=== PATIENT | female | born 1985 | race Caucasian/White ===

== ENCOUNTER 2020-01-21 11:51 | Inpatient (IN) | payer BC, SELFPAY ==
[2020-01-21] VITALS (87 sets, daily range): BP systolic 77–129; BP diastolic 38–90; PULSE 57–113; RESP 16; TEMP 36.6–37.3; O2SAT 89–100; BMI 27.8
[2020-01-21 12:51] LABS: Basophils Percent Auto 0.3 % (0.2-1.2); Eosinophils Absolute Auto 0.1 K/mm3 (0-0.3); Eosinophils Percent Auto 0.4 % (0-4.4); Hematocrit 33.5 % (37.0-47.0); Immature Granulocyte Absolute 0.15 K/mm3 (0.00-0.031); Immature Granulocyte Percent A 1.1 % (0-0.5); Lymphocytes Absolute Auto 1.33 K/mm3 (0.9-3.2); Lymphocytes Percent Auto 9.9 % (18.3-44.2); Mean Corpuscular HGB Conc 32.8 g/dl (32-36); Mean Corpuscular Hemoglobin 28.7 pg (26-34); Mean Corpuscular Volume 87.5 fl (80-100); Mean Platelet Volume 11.3 fl (7.4-10.4); Monocytes Absolute Auto 0.7 K/mm3 (0.1-0.6); Monocytes Percent Auto 5.4 % (2.6-8.5); Neutrophils Absolute Auto 11.1 K/mm3 (1.3-6.7); Neutrophils Percent Auto 82.9 % (45.5-73.1); Platelet Count Result 180 k/mm3 (150-375); Red Blood Count 3.83 M/mm3 (4.2-5.4); Red Cell Distribution Width 12.7 % (11.5-14.5); White Blood Count 13.4 K/mm3 (4.5-10.0)
[2020-01-21] MEDS: OXYTOCIN 30 UNITS/NS 500 ML 30 UNITS/500 ML BAG IV CONT (13:03)
[2020-01-21] MEDS: LACTATED RINGERS 1,000 ML 125 ML IV CONT ×3 (13:05→17:36)
--- NOTE | 2020-01-21 15:12 | WPDANESEPP ---
Anes - Eval Pre Procedure Procedure: labor pain management Date/Time: 01/21/20 15:12 Preop Diagnosis: pain during labor Pre Op Diagnosis: SROM/Labor Patient Data Age: 34 Gender: F Height: 5 ft 8 in Weight: 83 kg Last Vital Signs Temp 99.2 F 01/21/20 13:03 Pulse 97 01/21/20 14:00 BP 107/68 01/21/20 14:00 Pulse Ox 99 01/21/20 15:07 Allergies Allergy/AdvReac Type Severity Reaction Status Date / Time naproxen Allergy Hives Verified 01/16/20 14:47 Home Medications Medication Instructions Recorded Confirmed Type gjxcckoydw-naiviysmdfvdj-mxat 1 cap PO TID PRN 01/16/20 01/16/20 History famotidine 20 mg PO DAILY 01/16/20 01/16/20 History ondansetron 8 mg PO Q8H PRN 01/16/20 01/16/20 History Laboratory Tests 01/21/20 01/21/20 01/21/20 12:43 12:43 12:43 WBC 13.4 K/mm3 H K/mm3 (4.5-10.0) RBC 3.83 M/mm3 L M/mm3 (4.2-5.4) Hgb 11.0 g/dL L g/dL (12.0-15.0) Hct 33.5 % L % (37.0-47.0) MCV 87.5 fl fl (80-100) MCH 28.7 pg pg (26-34) MCHC 32.8 g/dl g/dl (32-36) RDW 12.7 % % (11.5-14.5) Plt Count 180 k/mm3 k/mm3 (150-375) MPV 11.3 fl H fl (7.4-10.4) Immature Gran % (Auto) 1.1 % H % (0-0.5) Neut % (Auto) 82.9 % H % (45.5-73.1) Lymph % (Auto) 9.9 % L % (18.3-44.2) [place] % (Auto) 5.4 % % (2.6-8.5) Eos % (Auto) 0.4 % % (0-4.4) Baso % (Auto) 0.3 % % (0.2-1.2) Lymph # (Auto) 1.33 K/mm3 K/mm3 (0.9-3.2) [place] # (Auto) 0.7 K/mm3 H K/mm3 (0.1-0.6) Eos # (Auto) 0.1 K/mm3 K/mm3 (0-0.3) Baso # (Auto) 0.0 K/mm3 K/mm3 (0.0-0.1) Abs Immat Gran (auto) 0.15 K/mm3 H K/mm3 (0.00-0.031) Absolute Neuts (auto) 11.1 K/mm3 H K/mm3 (1.3-6.7) Absolute Nucleated RBC 0.0 K/mm3 K/mm3 (0.0-0.012) Nucleated RBC % 0.0 % % (0.0-0.2) RPR Pending Blood Type O Positive Antibody Screen Negative Patient hx anesthesia problems: none Family hx anesthesia problems: none PMFSH Past Medical History Medical History (Updated 01/21/20 @ 15:13 by Anna Lugo CRNA) Migraines Rheumatoid arthritis Surgical History Surgical History (Updated 01/21/20 @ 15:13 by Anna Lugo CRNA) Hx of tonsillectomy Family History Family History (Updated 01/16/20 @ 15:15 by Shoaib Garcia RN) Mother Rheumatoid arthritis Social History Social History Smoking status: Never smoker Second hand tobacco smoke exposure: No Substance use: never Gender identity (if verbalized by the patient): Female Spiritual care concerns: No Exam Day of Procedure 01/21/20 15:12
[2020-01-21] MEDS: PHENYLEPHRINE 1,000 MCG/10 ML SYRINGE 100 MCG IV PUSH ×2 (16:17→16:21)
[2020-01-21] MEDS: ONDANSETRON INJ 4 MG/2 ML VIAL IV PUSH (16:19)
--- NOTE | 2020-01-21 18:01 | WPDHPUPDATE1 ---
History and Physical Update Update Date/Time: 01/21/20 18:01 34 yo at 37w5d who presents after SROM. She reports regular ctx. She denies any vaginal bleeding. She endorses good FM. History and Physical has been reviewed, including an updated exam of the patient. There are NO changes in the patient's condition. Risks, benefits, and alternatives have been discussed and questions answered. Patient agrees to proceed with procedure. A/P: 34 yo at 37w5d who presents after SROM admit to L&D routine admisson orders Rh+ GBS neg FHT cat 1 will start augmentation with pitocin
--- NOTE | 2020-01-21 18:04 | PM.OBPRVD ---
OB - Delivery Note Procedure Procedure: Patient pushed for a spontaneous vaginal delivery. The fetus was delivered atraumatically and placed on the maternal abdomen. The cord was clamped and cut after 1 minute of life. The cord was double clamped and cut and a segment of cord was collected for cord gases. Cord blood was collected for blood type and Coomb's testing. The placenta delivered spontaneously and was noted to be intact. The perineum was inspected and there were no lacerations noted. The uterus was firm and good hemostasis was noted. The patient and fetus were stable in the delivery room. Intrapartal events: None Induction method: none Delivery augmentation: pitocin Delivery monitor: external FHT Route of delivery: Episiotomy description: None Laceration description: None Specimen: No Estimated blood loss (mL): 250 Anesthesia type: Epidural Disposition: floor () Complications: No immediate complications Baby Date of : 01/21/20 Time of : 17:46 Weeks of gestation at delivery: 37 gender: Male presentation: vertex position: Right Occiput Anterior Placenta delivery description: Spontaneous cord vessel description: Nuchal Cord score one minute: 8 score five minutes: 9
[2020-01-21] MEDS: OXYTOCIN 30 UNITS/NS 500 ML 30 UNITS/500 ML BAG 125 UNITS IV CONT (18:27)
--- NOTE | 2020-01-21 21:11 | OBPPTRN ---
Patient transferred to post room #290 via wheelchair. Support person present. Oriented to unit, room, information board, rooming in, admission packet and security measures. Patient verbalizes understanding. with patient.
[2020-01-21] MEDS: WITCH HAZEL 40 PADS 1 PAD TOPICAL (21:18)
[2020-01-21] MEDS: BENZOCAINE 20% AER SPR (*SP) 56 GM CAN 1 SPRAY TOPICAL (21:18)
[2020-01-22] MEDS: IBUPROFEN 600 MG TABLET PO ×3 (01:45→18:05)
[2020-01-22] MEDS: ACETAMINOPHEN 325 MG TABLET 650 MG PO ×3 (04:39→23:00)
[2020-01-22 05:37] LABS: Hematocrit 32.2 % (37.0-47.0); Hemoglobin 10.6 g/dL (12.0-15.0)
--- NOTE | 2020-01-22 06:50 | P.PNOB_ITS ---
OB - PN: Subj Subjective Date/time seen: 01/22/20 06:50 Patient comments: no complaints, pain well controlled and tolerating diet [place] feeding status: exclusively breast feeding Narrative: patient doing well this AM. No complaints. Pain is well controlled. She reports minimal bleeding. She is ambulating and voiding without difficulty. She is tolerating PO. She denies N/V, fever, chills. OB - PN: Obj Data Labs CBC & Chem 7: 01/22/20 04:33 Labs: Laboratory Results - last 24 hr 01/21/20 01/21/20 01/22/20 12:43 12:43 04:33 WBC 13.4 H RBC 3.83 L Hgb 11.0 L 10.6 L Hct 33.5 L 32.2 L MCV 87.5 MCH 28.7 MCHC 32.8 RDW 12.7 Plt Count 180 MPV 11.3 H Immature Gran % (Auto) 1.1 H Neut % (Auto) 82.9 H Lymph % (Auto) 9.9 L [place] % (Auto) 5.4 Eos % (Auto) 0.4 Baso % (Auto) 0.3 Lymph # (Auto) 1.33 [place] # (Auto) 0.7 H Eos # (Auto) 0.1 Baso # (Auto) 0.0 Abs Immat Gran (auto) 0.15 H Absolute Neuts (auto) 11.1 H Absolute Nucleated RBC 0.0 Nucleated RBC % 0.0 Blood Type O Positive Antibody Screen Negative OB - PN A/P Plan day: 1 Plan: routine care Comments: patient doing well H/H stable plan for circumcision today continue routine care Time Spent With Patient Time: Total time spent is greater than 50% in coordination of care (as documented) at patient's floor/unit and/or counseling patient: Time with patient: less than 15 minutes Review of Systems Review of Systems: All systems reviewed & are unremarkable except as noted in HPI and below Exam Const: General: comfortable and no acute distress Resp: Effort & Inspection: normal respiratory effort Cardio: Rate: regular rate GI: GI Palp: Yes Soft to palpation and No Tenderness to palpation present (GI) Auscultation: normal bowel sounds Other: fundus firm and below umbilicus. Psych: Affect: normal affect
[2020-01-22 07:10] VITALS: BP 119/63; PULSE 76; RESP 20; TEMP 37.2
[2020-01-22] MEDS: FAMOTIDINE 20 MG TABLET PO (08:25)
[2020-01-22] MEDS: MULTIVIT/MIN/PREN/FOL AC/IRON TABLET 1 TAB PO (08:25)
--- NOTE | 2020-01-22 16:56 | WPDANLDPN2 ---
Anes-Prog Note L&D Date/Time: 01/22/20 16:56 Comfortable throughout: labor and delivery Neuraxial method: epidural Epidural/Spinal procedure site: clean & non-tender Neuro status: Neuro function grossly intact. Cardiovascular status: normal Respiratory status: normal Airway patency: baseline Mental status: baseline Post-Op hydration status: normal Vital Signs: Last Vital Signs Temp 98.9 F 01/22/20 07:10 Pulse 76 01/22/20 07:10 Resp 20 01/22/20 07:10 BP 119/63 01/22/20 07:10 Pulse Ox 100 01/21/20 21:11 Post-procedural complaints: none Patient feedback: Patient satisfied with anesthetic care.
[2020-01-22 21:00] VITALS: BP 111/69; PULSE 110; RESP 18; TEMP 36.6; O2SAT 100
--- NOTE | 2020-01-23 07:02 | PM.OBDSVD ---
OB - DS: Summary OB Procedures : None OB Procedures Intrapartum: Spontaneous Vag Delivery OB Procedures: : None Peripartum Data Laceration description: None complications: none Status at Discharge Functional status at discharge: independent ambulation Overall status at discharge: patient is back to baseline Time Spent with Patient Time attestation: Total time spent providing and/or coordinating discharge services: Time spent: Less than 30 minutes Exam Const: General: comfortable and no acute distress Resp: Effort & Inspection: normal respiratory effort Auscultation: clear to auscultation bilaterally Cardio: Rate: regular rate GI: GI Palp: Yes Soft to palpation Auscultation: normal bowel sounds Other: Fundus firm below umbilicus Psych: Appearance: grossly normal Mental Status: mental status grossly normal Affect: normal affect Discharge Plan Discharge Discharging Clinician: Bishop Sanchez Patient Disposition: Home, Self-Care Activity: no straining and pelvic rest Diet: regular Patient Instructions: Antibiotic Form, Vaginal Delivery (DC) Stand Alone Forms: General Discharge Information Follow-up/Referrals: Adriano Alvarado MD [Physician] - Discharge Medications: New ibuprofen 600 mg Tablet 600 mg PO Q6H PRN (Reason: Cramping) Qty: 30 RF: 0 Gyo-F-Knlbdq Cream 1 applic topical PRN PRN (Reason: Sore Nipples) Qty: 1 RF: 0 acetaminophen [Mapap (acetaminophen)] 325 mg Tablet 650 mg PO Q6H PRN (Reason: Mild Pain (1-3) Or Headache) Qty: 30 RF: 0 Continued famotidine 20 mg Tablet 20 mg PO DAILY RF: 0 hyodpidmfq-uprcoekkfxcrd-kovd 50-300-40 mg Capsule 1 cap PO TID PRN (Reason: Migraine Headache) RF: 0 ondansetron 8 mg Tablet,Disintegrating 8 mg PO Q8H PRN (Reason: Nausea And Vomiting) RF: 0 Date of admission: 01/21/20 11:51 Primary Care Provider: Reji Mancera Admitting Provider: Adriano Alvarado Attending physician on admission: Adriano Alvarado
[2020-01-23 07:07] LABS: Rapid Plasma Reagin Non-Reactive (NonReactive)
[2020-01-23] MEDS: MULTIVIT/MIN/PREN/FOL AC/IRON TABLET 1 TAB PO (07:48)
[2020-01-23] MEDS: FAMOTIDINE 20 MG TABLET PO (07:48)
[2020-01-23] MEDS: IBUPROFEN 600 MG TABLET PO (07:49)
[2020-01-23] MEDS: LANOLIN (LANSINOH) 7.5 GM CREAM 1 APPLIC TOPICAL (07:50)
[2020-01-23 08:30] VITALS: BP 109/71; PULSE 78; RESP 16; TEMP 36.7; O2SAT 99
--- NOTE | 2020-01-23 09:30 | PC.NURSE ---
Consult with pt., mother reports infant is sleepy and has difficulties with waking and keeping infant awake to nurse. Mother has been pumping and supplementing EBM/formula. Mother voices concerns with feeding status. Discussed the early 37 week infant vs first child was 41 weeks. Reviewed it is normal to wake and stimulate to keep awake during feedings. Mother states the last few feedings she has bottle feed and pumped, not putting infant to breast. Mother plans to continue with this at home as she will be returning to work earlier than with first child. Reviewed infant feeding cues, frequencies, duration of feedings, feeding elimination flow sheet, and signs of adequate intake. Demonstrated stimulation techniques to wake for feeding. Mother is feeding as required and waking to feed if needed. Infant is currently meeting outcomes for weight, output, jaundice and feeding frequencies. Mother states she feels confident to with current feeding plan to pump and bottle feed at home. Reviewed transition to breast milk, signs of adequate intake, and engorgement/relief. Instructed to call ICP if intake/output less than required. Reviewed regular medications mother is taking. Information provided per Shira. Reviewed community resources on the [facility] website and in the Mom/Baby guide. Information on outpatient services provided. Mother has a Medela double electric pump for home use. Discussed supplementing 15-20 mls increasing as 's needs/desires increase. Mother has no further questions at this time.
--- NOTE | 2020-01-23 11:40 | PC.NURSE ---
Patient viewed the discharge video Mother & Baby Care, The First Two Weeks . Patient was given the opportunity and encouraged to ask questions. Patient verbalized understanding of information shared and has been given the mother/baby guide for home reference.
[2020-01-24 09:02] VITALS: BP 106/70; PULSE 85; RESP 16; TEMP 36.9; O2SAT 99
== END 2020-01-23 12:42 | disposition home or self-care (01) | DRG 807 ==
LOC: ANHOB2 01-23 10:43 → ANHLDR 01-25 10:18 → ANHOB2 01-25 10:18
PROVIDERS: Admitting Provider Student in an Organized Health Care Education/Training Program; PCP Internal Medicine; Visit Provider Student in an Organized Health Care Education/Training Program
DX: O69.81X0 Labor and delivery complicated by cord around neck, without compression, not applicable or unspecified (principal); Z37.0 Single live birth; Z3A.37 37 weeks gestation of pregnancy; O99.89 Other specified diseases and conditions complicating pregnancy, childbirth and the puerperium; M06.9 Rheumatoid arthritis, unspecified; G43.909 Migraine, unspecified, not intractable, without status migrainosus
CPT/HCPCS: 36415; 85014; 85018; 85025; 86592; 86850; 86900; 86901; A9270; J2370; J2405; J2590; J2795; J7120

== ENCOUNTER 2021-02-02 14:34 | Emergency (ER) | payer BC, SELFPAY ==
--- NOTE | ~2021-02-02 | US_ITS ---
EXAMINATION: US OB limited EXAM DATE: 02/02/2021 17:02 INDICATION: 16 weeks with pelvic pain . 2nd trimester. TECHNIQUE: Pelvic obstetrical transabdominal sonogram was performed by a technologist. There are mu ltiple grayscale and Doppler images available for interpretation. There are no earlier studies of th is gestation for comparison. FINDINGS: Cervical canal measures 4.6 cm, normal. There is no cervical funneling. Placental margin to internal cervical os distance is 1.0 cm, low posterior position. There is a single fetus identified in breech presentation with a heart rate of 147 beats per minute. There is no sonographic evidence of retroplacental hemorrhage identified. There is subjectively expected amount of amniotic fluid. Righ t ovary identified, morphologically normal. Left not identified. IMPRESSION: 1. Single fetus in breech presentation with heart rate 147 beats per minute. 2. Low posterior placenta without retroplacental hemorrhage suspected. Reviewed, dictated and finalized at location A.
[2021-02-02 14:38] VITALS: BP 135/91; PULSE 115; RESP 18; TEMP 36.6; O2SAT 100
--- NOTE | 2021-02-02 15:04 | ED.ABDPAIN ---
HPI - Abdominal Pain General Chief Complaint: Abdominal Pain Stated Complaint: preg abd pain Time Seen by Provider: 02/02/21 14:37 Source: patient and RN notes reviewed Mode of arrival: ambulatory Limitations: no limitations History of Present Illness HPI narrative: Patient is 35 years old white female, presents with lower back pain, pain and pressure in the suprapubic area with anal and vaginal discomfort. Started at 9 AM. Patient also noticed increase in the amount of vaginal discharge which is green and yellow in the last 24 hours. Patient denies any fever, chills, nausea, vomiting. Patient is 15 weeks , patient is 3 para 2 0. Last pelvic ultrasound was 1 month ago. Patient denies any sexual intercourse in the last 24 hours. Related Data Home Medications Medication Instructions Recorded Confirmed ondansetron 8 mg PO Q8H PRN 01/16/20 01/16/20 Allergies Allergy/AdvReac Type Severity Reaction Status Date / Time naproxen Allergy Hives Verified 02/02/21 14:41 Review of Systems Review of Systems: Narrative: CONSTITUTIONAL: Denies fever, chills, or sweats. EYES: Denies visual changes, redness, or discharge. ENT: Denies rhinorrhea, congestion, sore throat, or otalgia. CARDIOVASCULAR: Denies chest pain, palpitations, or edema. RESPIRATORY: Denies cough or dyspnea. GASTROINTESTINAL: Denies abdominal pain, nausea, vomiting, or diarrhea. GENITOURINARY: Denies dysuria or hematuria. SKIN: Denies rash or itching. MUSCULOSKELETAL: Denies back pain, joint pain, or myalgia. NEUROLOGIC: Denies headache, numbness, or weakness. PSYCHIATRIC: Denies anxiety or depression. [facility] Past Medical History Medical History Migraines Rheumatoid arthritis Surgical History Surgical History Hx of tonsillectomy Family History Family History Mother Rheumatoid arthritis Social History Social History Smoking status: Never smoker Second hand tobacco smoke exposure: No Substance use: never Gender identity (if verbalized by the patient): Female Spiritual care concerns: No Exam Narrative: Exam Narrative: General appearance: Well-developed, well-nourished Skin: Normal color Head: Normocephalic, nontraumatic Eyes: Clear conjunctiva ENT: Oropharynx normal, ears normal, nose normal Neck: Supple, nontender Chest and respiratory: Airway patent, no respiratory distress, no accessory muscle use Heart: Regular rate/rhythm Abdomen: Soft, mild tenderness left suprapubic area, no bruises, no swelling, no rash, no organomegaly, quiet bowel sounds, rectal exam showed hard stool in the rectal pouch, no fecal impaction. Vascular: Normal peripheral pulses, normal capillary refill. Musculoskeletal: Normal range of motion, nontender back Neurologic: Alert and oriented ?3, [employer] is normal as tested, no gross motor deficit : External Female Exam: normal external appearance Speculum Exam - Vagina: normal appearance of the vagina and normal vaginal discharge Speculum Exam - Cervix: normal appearance of the cervix, normal palpation and Cervical os closed Bimanual exam- vagina & uterus: normal bimanual exam Bimanual Exam- Adnexa, other: normal adnexae and no masses Course Course Emergency Course: Stable Consultations Consultation #1: DR VEE. agree with the Fleet enema and MiraLAX daily. Date: 02/02/21 Time: 18:28 Vital Signs Vital signs: Vital Signs Temperature 36.6 C 02/02/21 14:38 Pulse Rate 115 H 02/02/21 14:38 Respirator
[2021-02-02 15:54] LABS: Basophils Absolute Auto 0.1 K/mm3 (0.0-0.1); Basophils Percent Auto 0.3 % (0.2-1.2); Eosinophils Absolute Auto 0.1 K/mm3 (0-0.3); Eosinophils Percent Auto 0.3 % (0-4.4); Hematocrit 42.7 % (37.0-47.0); Hemoglobin 13.9 g/dL (12.0-15.0); Immature Granulocyte Absolute 0.08 K/mm3 (0.00-0.031); Immature Granulocyte Percent A 0.5 % (0-0.5); Lymphocytes Absolute Auto 1.52 K/mm3 (0.9-3.2); Lymphocytes Percent Auto 10.2 % (18.3-44.2); Mean Corpuscular HGB Conc 32.6 g/dl (32-36); Mean Corpuscular Hemoglobin 28.8 pg (26-34); Mean Corpuscular Volume 88.6 fl (80-100); Mean Platelet Volume 10.9 fl (7.4-10.4); Monocytes Absolute Auto 0.6 K/mm3 (0.1-0.6); Monocytes Percent Auto 4.2 % (2.6-8.5); Neutrophils Absolute Auto 12.6 K/mm3 (1.3-6.7); Neutrophils Percent Auto 84.5 % (45.5-73.1); Platelet Count Result 253 k/mm3 (150-375); Red Blood Count 4.82 M/mm3 (4.2-5.4); Red Cell Distribution Width 14.1 % (11.5-14.5); White Blood Count 14.9 K/mm3 (4.5-10.0)
[2021-02-02 16:05] LABS: Alanine Aminotransferase 12 U/L (4-35); Albumin Level 4.5 g/dL (3.5-5.1); Alkaline Phosphatase 55 U/L (38-126); Anion Gap 12 mmol/L (8-16); Aspartate Amino Transferase 21 U/L (14-36); Bilirubin,Total 0.4 mg/dL (0.2-1.3); Blood Urea Nitrogen 6 mg/dL (7-17); Calcium 9.3 mg/dL (8.4-10.2); Carbon Dioxide 20 mmol/L (22-30); Chloride 106 mmol/L (98-107); Estimated CRCL calculation 135 ml/min; Estimated Glomerular Filt Rate > 60; Glucose 80 mg/dL (65-110); Lipase 46 U/L (23-300); Potassium 3.6 mmol/L (3.4-5.0); Sodium 138 mmol/L (137-145)
[2021-02-02 16:06] LABS: Add Urine Microscopic? YES; Appearance Urine Clear (Clear); Bacteria Urine 2+ /hpf; Bilirubin Urine Negative (Negative); Blood Urine Negative (Negative); Color Urine Yellow (Yellow); Glucose Urine UA Negative (Negative); Ketones Urine Trace mg/dL (Negative); Leukocyte Esterase Ur Trace LEU/UL (Negative); Mucus Urine Rare /lpf; Nitrate Urine Negative (Negative); Protein Urine Negative (Negative); Specific Grav Ur 1.015 (1.001-1.035); Squamous Epithelial Cell Urine Occasional /hpf (Few); Urobilinogen Urine Negative mg/dL (<2.0); WBC Urine 0-3 /hpf
[2021-02-02 16:19] VITALS: BP 94/63; PULSE 80; RESP 20; O2SAT 99
[2021-02-02 18:04] VITALS: BP 107/64; PULSE 83; RESP 20; O2SAT 100
[2021-02-02 19:20] VITALS: BP 100/82; PULSE 60; RESP 20; O2SAT 100
== END 2021-02-02 19:23 | disposition home or self-care (01) ==
PROVIDERS: Emergency Provider Emergency Medicine; PCP Internal Medicine
DX: O99.612 Diseases of the digestive system complicating pregnancy, second trimester (principal); K59.00 Constipation, unspecified; O99.891 Other specified diseases and conditions complicating pregnancy; M06.9 Rheumatoid arthritis, unspecified; Z3A.15 15 weeks gestation of pregnancy
CPT/HCPCS: 36415; 76815; 80053; 81001; 83690; 85025; 87070; 87491; 87591; 87808; 99284

== ENCOUNTER 2021-07-04 07:16 | Outpatient (CLI) | payer OTHER, SELFPAY ==
--- NOTE | 2021-07-04 08:27 | PC.NURSE ---
Dr. Alvarado at bedside, US performed, fetus vertex.
--- NOTE | 2021-07-04 08:27 | WPDOBADMIT ---
Obstetrics - Admit Note Admission Note: record reviewed. Additions to the history and/or subsequent changes in the physical findings follow. 35 y/o at 37 weeks with transverse presentation on ultrasound earlier this week, here for ECV. Good movement. Rare contractions. No vaginal bleeding or loss of fluid. AVSS NST reactive TOCO: rare contractions ABD soft, nontender, gravid EXT nontender Bedside ultrasound exam shows vertex presentation A: Nonvertex presentation, resolved spontaneously. P: Home to f/u next week for routine visit. Labor precautions reviewed.
== END 2021-07-04 08:40 | disposition home or self-care (01) ==
LOC: ANHOBOP 07:22 → ANHOBPP 07:23
PROVIDERS: PCP Internal Medicine; Visit Provider Obstetrics & Gynecology
DX: O32.1XX0 Maternal care for breech presentation, not applicable or unspecified (principal); Z3A.00 Weeks of gestation of pregnancy not specified
CPT/HCPCS: 59025; 99199

== ENCOUNTER 2021-07-19 21:49 | Inpatient (IN) | payer OTHER, SELFPAY ==
--- NOTE | ~2021-07-19 | XR_ITS ---
EXAMINATION: XR abdomen/kub 1V DATE: 07/20/2021 10:56 INDICATION: Location of intrauterine device. TECHNIQUE: A supine view of the abdomen was obtained. COMPARISON: CT abdomen and pelvis 03/22/2019 FINDINGS: There are no dilated loops of bowel. There are phleboliths in the pelvis. There is an intra uterine device in abnormal position in the right lower quadrant of the abdomen. IMPRESSION: 1. Intrauterine device in abnormal position in the right lower quadrant of the abdomen. Reviewed, dictated and finalized at location B. 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
[2021-07-20] VITALS (75 sets, daily range): BP systolic 67–139; BP diastolic 35–122; PULSE 55–171; RESP 16–18; TEMP 35.9–36.9; O2SAT 75–100; BMI 28.5
--- NOTE | 2021-07-20 01:53 | LDADM ---
This patient, Hyacinth Campo, was admitted to Labor/Delivery/Recovery 108 on 07/20/21 at 01:43. Plans for labor, pain management and were discussed with patient. Patient/family oriented to hospital policies and general routines including ID bracelet, bed and alarms, visiting hours, pain management, procedures, bathroom and other care routines, personal items, smoking policy, room service/diet and guest tray routines, security routines, and visiting hours. Patient/Family are encouraged to report perceived risks to care and to ask questions if they do not understand what they are told or what they should do. See OBIX for further documentation.
[2021-07-20] MEDS: LACTATED RINGERS 1,000 ML 125 ML IV CONT ×2 (02:28→05:33)
[2021-07-20 02:43] LABS: Basophils Absolute Auto 0.1 K/mm3 (0.0-0.1); Basophils Percent Auto 0.5 % (0.2-1.2); Eosinophils Absolute Auto 0.2 K/mm3 (0-0.3); Eosinophils Percent Auto 1.1 % (0-4.4); Hematocrit 35.9 % (37.0-47.0); Hemoglobin 11.5 g/dL (12.0-15.0); Immature Granulocyte Absolute 0.12 K/mm3 (0.00-0.031); Immature Granulocyte Percent A 0.9 % (0-0.5); Lymphocytes Percent Auto 18.5 % (18.3-44.2); Mean Corpuscular Hemoglobin 28.6 pg (26-34); Mean Corpuscular Volume 89.3 fl (80-100); Mean Platelet Volume 10.9 fl (7.4-10.4); Monocytes Absolute Auto 0.9 K/mm3 (0.1-0.6); Monocytes Percent Auto 6.7 % (2.6-8.5); Neutrophils Absolute Auto 10.2 K/mm3 (1.3-6.7); Neutrophils Percent Auto 72.3 % (45.5-73.1); Platelet Count Result 261 k/mm3 (150-375); Red Blood Count 4.02 M/mm3 (4.2-5.4); Red Cell Distribution Width 13.8 % (11.5-14.5); White Blood Count 14.1 K/mm3 (4.5-10.0)
--- NOTE | 2021-07-20 05:44 | WPDANESEPP ---
Anes - Eval Pre Procedure Procedure: Labor epidural Date/Time: 07/20/21 05:44 Surgeon: Jenny Preop Diagnosis: Abd pain with contractions Pre Op Diagnosis: Contractions Patient Data Age: 35 Gender: F Height: 1.73 m Weight: 85 kg Last Vital Signs Temp 98.1 F 07/20/21 05:17 Pulse 100 07/20/21 02:29 Resp 16 07/20/21 05:17 BP 115/65 07/20/21 02:29 Pulse Ox 100 07/20/21 05:44 Allergies Allergy/AdvReac Type Severity Reaction Status Date / Time naproxen Allergy Hives Verified 02/02/21 14:41 Home Medications Medication Instructions Recorded Confirmed Type famotidine [Zantac-360 10 mg PO BID 06/29/21 07/20/21 History (famotidine)] Tums Anti-Gas/Antacid See Rx Instructions .ROUTE .COMPLEX 07/20/21 07/20/21 History Laboratory Tests 07/20/21 07/20/21 07/20/21 02:03 02:03 02:03 WBC 14.1 K/mm3 H K/mm3 (4.5-10.0) RBC 4.02 M/mm3 L M/mm3 (4.2-5.4) Hgb 11.5 g/dL L g/dL (12.0-15.0) Hct 35.9 % L % (37.0-47.0) MCV 89.3 fl fl (80-100) MCH 28.6 pg pg (26-34) MCHC 32.0 g/dl g/dl (32-36) RDW 13.8 % % (11.5-14.5) Plt Count 261 k/mm3 k/mm3 (150-375) MPV 10.9 fl H fl (7.4-10.4) Immature Gran % (Auto) 0.9 % H % (0-0.5) Neut % (Auto) 72.3 % % (45.5-73.1) Lymph % (Auto) 18.5 % % (18.3-44.2) [place] % (Auto) 6.7 % % (2.6-8.5) Eos % (Auto) 1.1 % % (0-4.4) Baso % (Auto) 0.5 % % (0.2-1.2) Lymph # (Auto) 2.60 K/mm3 K/mm3 (0.9-3.2) [place] # (Auto) 0.9 K/mm3 H K/mm3 (0.1-0.6) Eos # (Auto) 0.2 K/mm3 K/mm3 (0-0.3) Baso # (Auto) 0.1 K/mm3 K/mm3 (0.0-0.1) Abs Immat Gran (auto) 0.12 K/mm3 H K/mm3 (0.00-0.031) Absolute Neuts (auto) 10.2 K/mm3 H K/mm3 (1.3-6.7) Absolute Nucleated RBC 0.0 K/mm3 K/mm3 (0.0-0.012) Nucleated RBC % 0.0 % % (0.0-0.2) RPR Pending Blood Type O Positive Antibody Screen Negative Patient hx anesthesia problems: none Family hx anesthesia problems: none Results Review: All pre-operative results and documents have been reviewed as part of the pre-operative evaluation. [facility] Past Medical History Medical History Migraines Overweight (BMI 25.0-29.9) Rheumatoid arthritis Surgical History Surgical History Hx of tonsillectomy Family History Family History Mother Rheumatoid arthritis Social History Social History Smoking status: Never smoker Second hand tobacco smoke exposure: No Substance use: never Gender identity (if verbalized by the patient): Female Spiritual care concerns: No Exam Day of Procedure 07/20/21 05:44 Patient weight: overweight Airway: Mallampati scale class II Neurological: alert and oriented
[2021-07-20] MEDS: FAMOTIDINE 20 MG/2 ML VIAL IV PUSH (06:44)
[2021-07-20] MEDS: ONDANSETRON INJ 4 MG/2 ML VIAL IV PUSH (06:45)
--- NOTE | 2021-07-20 07:30 | WPDOBADMIT ---
Obstetrics - Admit Note Admission Note: record reviewed. Additions to the history and/or subsequent changes in the physical findings follow. 35 y/o at 39 2/7 weeks here with contractions. Labor diagnosed. GBS neg. Comfortable with epidural. AVSS NST reactive TOCO: contractions every 2-3 min ABD soft, nontender, gravid, vertex EXT nontender Cervix complete / +1 A: IUP at term with labor. P: Begin pushing.
[2021-07-20] MEDS: OXYTOCIN 30 UNITS/NS 500 ML 30 UNITS/500 ML BAG 999 UNITS IV CONT (07:48)
--- NOTE | 2021-07-20 08:02 | P.PCNOB_ITS ---
OB - Delivery Note Procedure Delivery date: 07/20/21 Procedure: Induction method: none Delivery monitor: external FHT and external uterine Route of delivery: Laceration Description: Periurethral Specimen: Yes (cord blood) Quantitative Blood Loss (ml): 125 Anesthesia type: Epidural Disposition: PACU Complications: None Narrative: 35 y/o at 39 2/7 weeks gestation who presented to the hospital with complaint of contrations. Labor was diagnosed. She received an epidural for pain control. Her labor progressed. She had SROM of clear fluid. Her cervix dilated completely. She pushed with good effort and delivered the infant's head to the perineum, followed by the body. The nose and mouth were bulb suctioned. After a delay, the cord was clamped and cut. The infant was handed off the field. Cord blood was collected. The placenta delivered spontaneously and was grossly normal in appearance. The usual 3 vessel cord was noted. A minimal periurethral laceration was sustained. This was not bleeding and did not require repair. Excellent hemostasis resulted. Needle and instrument counts were correct. The patient was taken to recovery room in stable condition. The went to the nursery in stable condition. I was present and scrubbed for the entire delivery. [place] Baby Date of : 07/20/21 Time of : 07:42 Weeks of gestation at delivery: 39 gender: Female Weight (pounds): 6 Weight (ounces): 11 presentation: vertex position: Left Occiput Anterior Placenta delivery description: Spontaneous and Normal Configuration cord vessel description: 3 Vessels and Delayed Cord Clamping score one minute: 8 score five minutes: 9
--- NOTE | 2021-07-20 08:05 | PM.OBDSVD ---
DS: Admitting Diagnosis Discharge Date 07/22/21 Admitting Diagnosis IUP at 39 2/7 weeks Labor DS: Discharge Diagnosis Discharge Diagnosis (1) (normal spontaneous vaginal delivery): Code(s): O80 - Encounter for full-term uncomplicated delivery Status: Inactive OB - DS: Summary OB Procedures : None OB Procedures Intrapartum: Spontaneous Vag Delivery OB Procedures: : None DS: Data Data Completed and Pending Labs on day of discharge: Labs from last 24 hours 07/20/21 07/20/21 07/20/21 02:03 02:03 02:03 WBC 14.1 H RBC 4.02 L Hgb 11.5 L Hct 35.9 L MCV 89.3 MCH 28.6 MCHC 32.0 RDW 13.8 Plt Count 261 MPV 10.9 H Immature Gran % (Auto) 0.9 H Neut % (Auto) 72.3 Lymph % (Auto) 18.5 [place] % (Auto) 6.7 Eos % (Auto) 1.1 Baso % (Auto) 0.5 Lymph # (Auto) 2.60 [place] # (Auto) 0.9 H Eos # (Auto) 0.2 Baso # (Auto) 0.1 Abs Immat Gran (auto) 0.12 H Absolute Neuts (auto) 10.2 H Absolute Nucleated RBC 0.0 Nucleated RBC % 0.0 RPR Pending Blood Type O Positive Antibody Screen Negative Discharge Plan Discharge Attending physician on discharge: Adriano Alvarado Discharging Clinician: Adriano Alvarado Patient Disposition: Home, Self-Care Activity: pelvic rest Diet: regular and no preference Discharge Instructions: Call or return if temperature above 100.4? F, increased abdominal pain, increased vaginal bleeding or any new problems. Stand Alone Forms: General Discharge Information Follow-up/Referrals: Adriano Alvarado MD [Physician] - 5 Weeks Discharge Medications: New ibuprofen 600 mg tablet 600 mg PO Q6H PRN (Reason: cramps) Qty: 30 RF: 0 Continued famotidine [Zantac-360 (famotidine)] 10 mg Tablet 10 mg PO BID RF: 0 Tums Anti-Gas/Antacid tablet See Rx Instructions .ROUTE .COMPLEX RF: 0 Date of admission: 07/20/21 01:43 Primary Care Provider: Reji Mancera Admitting Provider: Adriano Alvarado Attending physician on admission: Adriano Alvarado Condition: Stable
[2021-07-20] MEDS: OXYTOCIN 30 UNITS/NS 500 ML 30 UNITS/500 ML BAG 125 UNITS IV CONT (08:20)
[2021-07-20] MEDS: WITCH HAZEL 40 PADS 1 PAD TOPICAL (10:07)
[2021-07-20] MEDS: BENZOCAINE 20% AER SPR (*SP) 56 GM CAN 1 SPRAY TOPICAL (10:07)
[2021-07-20] MEDS: IBUPROFEN 600 MG TABLET PO ×2 (10:07→16:58)
--- NOTE | 2021-07-20 11:45 | OBPPTRN ---
1123-Patient transferred to post room #291 via wheelchair. Support person present. Oriented to unit, room, information board, rooming in, admission packet and security measures. Patient verbalizes understanding.
[2021-07-21 04:15] VITALS: BP 109/67; PULSE 90; RESP 18; TEMP 37; O2SAT 99
[2021-07-21] MEDS: IBUPROFEN 600 MG TABLET PO ×3 (04:41→20:32)
[2021-07-21 04:58] LABS: Hematocrit 32.7 % (37.0-47.0); Hemoglobin 10.7 g/dL (12.0-15.0)
[2021-07-21 08:00] VITALS: PULSE 82; RESP 18; O2SAT 99
[2021-07-21 08:07] VITALS: BP 109/74; PULSE 82; RESP 18; TEMP 36.4
--- NOTE | 2021-07-21 10:09 | PM.OBPNVD ---
OB - PN: Subj Subjective Date/time seen: 07/21/21 10:09 Narrative: Pain OK. KUB shows intraperitoneal IUD. OB - PN: Obj Data Labs CBC & Chem 7: 07/21/21 04:14 Labs: Laboratory Results - last 24 hr 07/21/21 04:14 Hgb 10.7 L Hct 32.7 L OB - PN A/P Plan Comments: A: PPD#1, doing well. P: Routine care. Plan home tomorrow. We discussed IUD location, need for laparoscopic retrieval in the future. She would like a dose of DMPA for now. Exam Psych: Other: AVSS ABD soft, nontender, fundus firm EXT nontender
--- NOTE | 2021-07-22 04:58 | PC.NURSE ---
07/21/2021 at 2130 Patient viewed the discharge video Mother & Baby Care, The First Two Weeks . Patient was given the opportunity and encouraged to ask questions. Patient verbalized understanding of information shared and has been given the mother/baby guide for home reference.
[2021-07-22] MEDS: IBUPROFEN 600 MG TABLET PO (06:42)
[2021-07-22 07:50] VITALS: BP 116/71; PULSE 85; RESP 16; TEMP 36.6; O2SAT 100
--- NOTE | 2021-07-22 08:59 | PM.OBPNVD ---
OB - PN: Subj Subjective Date/time seen: 07/22/21 08:59 Narrative: Pain OK. Would like to go home. OB - PN: Obj Data Labs CBC & Chem 7: 07/21/21 04:14 OB - PN A/P Plan Comments: A: PPD#2, doing well. P: Home to f/u 6 weeks. Exam Psych: Other: AVSS ABD soft, nontender, fundus firm EXT nontender
[2021-07-22] MEDS: medroxyPROGESTERone ACETATE IM 150 MG/ML SYR IM (09:55)
[2021-07-22] MEDS: MULTIVIT/MIN/PREN/FOL AC/IRON TABLET 1 TAB PO (09:55)
[2021-07-22 11:22] LABS: Rapid Plasma Reagin Non-Reactive (NonReactive)
[2021-07-23 14:09] VITALS: BP 125/75; PULSE 68; RESP 16; TEMP 36.6; O2SAT 100
== END 2021-07-22 11:40 | disposition home or self-care (01) | DRG 807 ==
LOC: ANHLDR 07-20 08:06 → ANHOB2 07-20 11:43
PROVIDERS: Admitting Provider Obstetrics & Gynecology; PCP Internal Medicine; Visit Provider Obstetrics & Gynecology
DX: O71.82 Other specified trauma to perineum and vulva (principal); Z37.0 Single live birth; Z3A.39 39 weeks gestation of pregnancy
CPT/HCPCS: 36415; 74018; 84112; 85014; 85018; 85025; 86592; 86850; 86900; 86901; A9270; J1050; J2405; J2590; J2795; J7120

== ENCOUNTER 2021-09-18 00:11 | Day surgery (SDC) | payer OTHER, SELFPAY ==
[2021-09-10 14:16] VITALS: BMI 25.9
--- NOTE | 2021-09-10 14:20 | PC.NURSE ---
Report to the Outpatient Waiting Room, entrance under the green pavilion located off [facility], at time __1230_ on date _09-18-21_. OR Time: ___230pm_. - You and your visitor will be asked a series of questions to screen for COVID 19 for your protection. - A mask is required within the hospital. Preoperative COVID Testing Requirements: No COVID Test needed if: (proof is required; if not received patient will have Rapid Test prior to entry) - Patient has received COVID Vaccine at least 14 days prior to procedure date or - Patient has positive COVID test result within last 90 days of surgery date. COVID Test needed if above criteria is not met If not COVID vaccinated a COVID test must be conducted within 72 hours of surgery and patient is asked to isolate self from time of testing until procedure. You will go to the [facility] for your COVID testing. The [facility] site is located at the corner of [address] from [facility]. You will only be called if COVID results are positive and your surgeon may reschedule your elective surgery date. Patients may have clear liquids (water, carbonated beverages, clear teas, apple juice) until 3 hours prior to surgery with a maximum of 20 ounces. - No food from midnight until time of surgery - Infants may have breast milk until 4 hours before surgery, formula 6 hours prior to surgery. - Children will be allowed to drink immediately following surgery. If applicable, please bring a bottle or sippy cup to assist with drinking. Juice, water, soda, and popsicles are readily available. For infants on formula, please bring formula the day of surgery. Pacifiers are allowed. Take the following medications with a SIP of water the morning of surgery: Medications to discontinue per physician Date to take last dose Please no make-up, nail belizean, hairspray, perfume, deodorant, or body powder the day of surgery. No jewelry (including any body piercings) or valuables the day of surgery, leave them at home. Please take a shower or bath the night before, or the morning of, surgery with an antibacterial soap. Wear comfortable, loose fitting clothing. Children are encouraged to wear pajamas. - Jewelry must be removed prior to entering the operating room. Rings and piercings that are not removed may be cut off. - The hospital will not accept responsibility for valuables. - Please leave all valuables, including medications, at home the day of surgery. If you are going home after surgery, a licensed otr flatbed driver must drive you home. - NO public transportation without another adult. - We recommend that an adult stay with you for 24 hours following discharge. - We also recommend that you do not drive, make important decision, drink alcoholic beverages, or take any drugs that were not prescribed by your health care provider for at least 24 hours after your discharge time. For Pediatric surgeries, we recommend two adults accompany the child home (only one inside the building at this time). One visitor will be allowed to accompany the patient into the hospital. Patients visitor will be instructed to remain with patient at all times or leave the building. We will allow the visitor to come back to the postoperative area when patient is ready. Follow any additional instructions given to you from your surgeon. Telephone instructions given to _Patient___and asked if any additional questions and then verbalized understanding. Patient advised to call surgeon office or pre surgery nurse liaison [phone] if any additional questions.
[2021-09-18] VITALS (12 sets, daily range): BP systolic 103–122; BP diastolic 48–81; PULSE 61–95; RESP 13–20; TEMP 36.2; O2SAT 95–100
--- NOTE | 2021-09-18 11:15 | P.PNAN_ITS ---
Anes - Initial Pre Proc Eval Procedure: Operation Date: 09/18/21 14:30 Proposed Procedures p Laparoscopic Bilateral Tubal Sterilization with Fallopian Rings, Removal of Intrauterine Device - Adriano Alvarado MD Date/Time: 09/18/21 11:15 Surgeon: Adriano Alvarado MD Pre Op Diagnosis: Desires Sterilization Patient Data Age: 36 Gender: F Height: 1.73 m Weight: 77.3 kg Allergies Allergy/AdvReac Type Severity Reaction Status Date / Time naproxen Allergy Mild Hives Verified 09/18/21 13:02 Home Medications Medication Instructions Recorded Confirmed Type fluoxetine 20 mg PO HS 09/10/21 09/10/21 History Patient hx anesthesia problems: none Family hx anesthesia problems: none Results Review: All pre-operative results and documents have been reviewed as part of the pre-operative evaluation. FOR[facility]LY [facility] Past Medical History Medical History (Updated 07/20/21 @ 08:06 by Adriano Alvarado MD) Migraines (normal spontaneous vaginal delivery) Overweight (BMI 25.0-29.9) Rheumatoid arthritis Surgical History Surgical History Hx of tonsillectomy Family History Family History Mother Rheumatoid arthritis Social History Social History Smoking status: Never smoker Second hand tobacco smoke exposure: No Alcohol intake: current Drinks per week: 1 Substance use: never Living arrangements: with family Gender identity (if verbalized by the patient): Female Spiritual care concerns: No Anes - Eval Final PreProcedure Day of Procedure 09/18/21 11:15 Patient weight: overweight Heart: regular rate and rhythm Lungs: clear to auscultation and normal air movement Airway: Mallampati scale class II Neurological: alert and oriented Last oral intake: >/= 8 hours ASA classification: II Emergent: no Anesthetic plan: proceed Anesthesia type and monitoring: general ETT and standard monitoring Results Review: All pre-operative results and documents have been reviewed as part of the pre-operative evaluation. Informed Consent: The patient's anesthetic plan and its attendant risks and benefits were discussed with the patient/family/POA. Questions were solicited and answers provided to the satisfaction of the patient/family/POA.
[2021-09-18] MEDS: ACETAMINOPHEN 500 MG TABLET 1000 MG PO (13:06)
[2021-09-18] MEDS: LACTATED RINGERS 1,000 ML 30 ML IV CONT ×2 (13:28→15:22)
[2021-09-18] MEDS: KETOROLAC 15 MG/ML VIAL (*BKC) IV PUSH (13:30)
--- NOTE | 2021-09-18 13:41 | PM.IMHP ---
H&P: HPI History of Present Illness Date/Time: 09/18/21 13:41 36 y/o desiring permanent contraception. She also has an intraperitoneal IUD. Chief Complaint: Here to have tubes tied Review of Systems Review of Systems: All systems reviewed & are unremarkable except as noted in HPI and below PMFSH Past Medical History Medical History Migraines (normal spontaneous vaginal delivery) Overweight (BMI 25.0-29.9) Rheumatoid arthritis Surgical History Surgical History Hx of tonsillectomy Family History Family History Mother Rheumatoid arthritis Social History Social History Smoking status: Never smoker Second hand tobacco smoke exposure: No Alcohol intake: current Drinks per week: 1 Substance use: never Living arrangements: with family Gender identity (if verbalized by the patient): Female Spiritual care concerns: No Meds Home Medications and Allergies Home Medications Medication Instructions Recorded Confirmed Type fluoxetine 20 mg PO HS 09/10/21 09/18/21 History Allergies Allergy/AdvReac Type Severity Reaction Status Date / Time naproxen Allergy Mild Hives Verified 09/18/21 13:02 Vital Signs Vital Signs - 24 hr 09/18/21 13:06 Temperature 36.2 C L Pulse Rate 95 Respiratory Rate 16 Blood Pressure 111/70 Pulse Oximetry 100 Exam Const: Orientation/consciousness: patient oriented x3 Other: Well-developed, well-nourished female in no acute distress. Neck: Thyroid: thyroid normal Lymphatic: no lymphadenopathy noted (in neck, axilla or inguinal nodes) Resp: Effort & Inspection: normal respiratory effort Auscultation: clear to auscultation bilaterally Cardio: Rate: regular rate Rhythm: regular rhythm Heart sounds: S1 normal heart sound present and S2 normal heart sound present GI: Other: ABD: Soft, nontender, nondistended. No guarding or rebound tenderness. No hepatosplenomegaly. : General: Yes no CVA tenderness Other: External genitalia: normal female hair distribution, without lesion. Urethral meatus: no lesion, non prolapsed. Bladder: no mass, nontender Vagina: well-estrogenized, without lesion or discharge. No cystocele or rectocele. Cervix: no lesion or discharge. Uterus: small, anteverted, freely mobile, nontender Adnexa: no mass or tenderness. Anus/perineum: no lesions, nontender Back/Spine/Pelvis: Back: no CVA tenderness Skin: General skin exam: normal color and no rashes or lesions noted Neuro: General: patient oriented x3 Extrem: Other: Extremities: nontender with no edema Psych: Mental Status: mental status grossly normal Affect: normal affect Assessment and Plan Assessment and plan (1) Unwanted fertility: Code(s): Z30.09 - Encounter for other general counseling and advice on contraception Status: Acute Assessment and Plan: A: Intraperitoneal IUD, desired sterility. P: I have offered laparoscopic retrieval of IUD, as well as laparoscopic bilateral tubal ligation. She understands there are temporary methods of contraception available to her. She understands that there are nonsurgical options as well as surgical options. She understands that tubal ligation will render her permanently sterile. She understands that there is a failure rate associated with tubal ligation, as well as an inherent ectopic gestation risk. Furthermore, she understands risks of surgery to include risks of anesthesia, risks of pain, infection, bleeding, blood products, thromboembolic phenomena and damage to adjacent structures such as bowel, bladder, ureters, blood vessels and nerves. She understands all these risks and elects to proceed with surgery. She has received the [employer]CO[employer] pamphlet on surgical sterilizatio
--- NOTE | 2021-09-18 13:44 | WPDHPUPDATE1 ---
History and Physical Update Update Date/Time: 09/18/21 13:44 History and Physical has been reviewed, including an updated exam of the patient. There are NO changes in the patient's condition. Risks, benefits, and alternatives have been discussed and questions answered. Patient agrees to proceed with procedure.
--- NOTE | 2021-09-18 15:10 | SUR.OPER ---
GLENNA CHRISTINA EXP 03-01-2024, LOT [id number]
[2021-09-18] MEDS: ceFAZolin SODIUM 1 GM VIAL 2 GM IV PUSH (15:15)
--- NOTE | 2021-09-18 15:19 | W.PM.PROC2 ---
Procedure Note - Detailed Date of Procedure 09/18/21 Pre-op Diagnosis Desired Sterilization Intraperitoneal IUD Post-op Diagnosis Same Procedure Performed Laparoscopic retrieval of intraperitoneal IUD. Laparoscopic bilateral tubal ligation with Falope rings. Surgeon Adriano Alvarado MD Anesthesia General and Local (1% lidocaine) Findings IUD in omentum. Normal-appearing liver, vermiform appendix, uterus, bilateral tubes and ovaries, anterior and posterior cul-de-sac, bilateral uterosacral and round ligaments. The tip of the acorn uterine manipulator was noted just under the serosa of the lower uterine segment anteriorly. Description of Procedure The patient was taken to the operating room where general endotracheal anesthesia was administered. She was prepared and draped in the usual sterile fashion in dorsal lithotomy position. The bladder was drained with a red rubber catheter. A sterile speculum was placed into the vagina. The anterior lip of the cervix was grasped with a single-tooth tenaculum. The acorn uterine manipulator was placed. The speculum was withdrawn. Gloves were changed and attention was turned the abdomen. An infraumbilical skin incision was made with a scalpel. The abdomen was tented and a 5mm bladeless trocar was advanced under direct laparoscopic visualization. Pneumoperitoneum was administered using carbon dioxide gas. A survey of the pelvis and abdomen revealed the findings noted above. A second skin incision was made in the midline above the symphysis pubis and an 8mm bladeless trocar was advanced under direct laparoscopic visualization. The intraperitoneal IUD was noted to be in the omentum. It was grasped and easily removed, intact, and discarded. The fallopian tube on the right side was then followed out to the fimbriated end for identification. It was then grasped in the midportion with the Falope ring applicator. The Falope ring applied. A good loop of tube was noted to be distal to the ring. Hemostasis was excellent. The device was reloaded and the contralateral tube was similarly identified and ligated. An excellent application was noted here as well. A total of 4mL of 1% lidocaine was infiltrated into the serosa of the proximal tubes for postoperative anesthesia. She was given Ancef 2 g IV to cover for possible uterine perforation with the tip of the acorn uterine maniuplator. The ports were withdrawn. The gas was allowed to escape. The skin incisions were reapproximated using interrupted subcuticular sutures of 4 0 Vicryl. Dermaflex was applied externally. The vaginal instrumentation was withdrawn and hemostasis was excellent here as well. Sponge, lap, needle and instrument counts were correct. The patient was awakened and taken to recovery room in stable condition. I was present and scrubbed through the entire procedure. Estimated Blood Loss 5 Drains No Packing No Pathology None sent Complications Other complications (Near perforation of the serosa of the lower uterine segment anteriorly with the tip of the acorn uterine manipulator. Complete perforation not noted, but thin layer of serosa was overlying tip of instrument.) Condition Stable Disposition PACU
[2021-09-18] MEDS: fentaNYL CITRATE INJ (*CRX) 100 MCG/2 ML VIAL 25 MCG IV PUSH ×7 (15:25→17:46)
[2021-09-18] MEDS: ONDANSETRON INJ 4 MG/2 ML VIAL IV PUSH (15:34)
[2021-09-18] MEDS: oxyCODONE HCL (*CRX) 5 MG TAB IR PO (16:43)
[2021-09-18] MEDS: diphenhydrAMINE HCl INJ 50 MG/ML VIAL 25 MG IV PUSH (17:26)
[2021-09-18] MEDS: SCOPOLAMINE 1.5 MG PATCH TRANSDERM (17:27)
== END 2021-09-18 18:18 | disposition home or self-care (01) ==
PROVIDERS: PCP Internal Medicine; Visit Provider Obstetrics & Gynecology
PROC: (CPT 58671; principal; 2021-09-18 14:30)
DX: T83.32XA Displacement of intrauterine contraceptive device, initial encounter (principal); Z30.2 Encounter for sterilization; Y84.8 Other medical procedures as the cause of abnormal reaction of the patient, or of later complication, without mention of misadventure at the time of the procedure
CPT/HCPCS: 58671; A4264; A9270; J0330; J0690; J1100; J1200; J1885; J2250; J2370; J2405; J2704; J3010; J7120

== ENCOUNTER 2023-08-17 09:16 | Outpatient (CLI) | payer OTHER, SELFPAY ==
--- NOTE | ~2023-08-17 | XR_ITS ---
EXAM: XR hand LT min 3V DATE: 08/17/2023 09:31 HISTORY: R22.32 - Localized swelling, mass and lump, left upper limb . COMPARISON: None available. FINDINGS: Normal mineralization. No fracture or dislocation. No lytic or blastic lesion. Joint space s are maintained. No erosion or periosteal change. Soft tissues within normal limits. IMPRESSION: Normal left hand radiograph findings. Reviewed, dictated and finalized at location K. [facility]
== END 2023-08-17 09:17 | disposition home or self-care (01) ==
PROVIDERS: PCP Internal Medicine; Visit Provider Plastic Surgery
DX: R22.32 Localized swelling, mass and lump, left upper limb (principal)
CPT/HCPCS: 73130